=== PATIENT | female | born 1970 | race Caucasian/White ===

== ENCOUNTER 2020-08-29 10:04 | Emergency (ER) | payer OTHER ==
[~2020-08-29 10:04] MED LIST: ASPIRIN EC81 MG PO; GLUCOTROL 10 MG10 MG PO; METFORMIN HCL1000 M1 PO; ZESTRIL20 MG PO
[2020-08-29 10:57] LABS: HEMOGLOBIN 9.2 gm/dl (12.3-15.3); RED BLOOD COUNT 2.91 M/UL (4.00-5.10); WHITE BLOOD COUNT 9.6 K/UL (4.5-11.0)
[2020-08-29] MEDS ORDERED: ZOFRAN4 MG PO (14:34)
[2020-08-29] MEDS ORDERED: MECLIZINE HCL25 MG PO (14:34)
[2020-08-30] MEDS ORDERED: CLOPIDOGREL75 MG PO (03:08)
[2020-08-30] MEDS ORDERED: FUROSEMIDE20 MG PO (03:08)
[2020-08-30] MEDS ORDERED: LOPRESSOR 25 MG25 MG PO (03:09)
[2020-08-30] MEDS ORDERED: GABAPENTIN300 MG PO (03:10)
[2020-09-27] MEDS ORDERED: ST. JOSEPH ASPI81 M1 PO (07:44)
[2020-09-27] MEDS ORDERED: IRON CHEWS15 MG PO (07:45)
[2020-09-27] MEDS ORDERED: STOOL SOFTENER100 M1 PO (07:45)
[2020-09-27] MEDS ORDERED: VITAMIN D250 MCG PO (07:45)
[2020-09-27] MEDS ORDERED: PLAVIX75 MG PO (07:46)
[2020-09-27] MEDS ORDERED: ISOSORBIDE MONO30 MG PO (07:47)
[2020-09-27] MEDS ORDERED: PROTONIX 40 MG40 M1 PO (10:02)
== END 2020-08-29 15:11 | disposition home or self-care (01) ==
LOC: ER1 10:04
PROVIDERS: Internal Medicine
DX: R42 Dizziness and giddiness (principal); R11.2 Nausea with vomiting, unspecified; I10 Essential (primary) hypertension; Z90.49 Acquired absence of other specified parts of digestive tract; Z20.822 Contact with and (suspected) exposure to COVID-19
CPT/HCPCS: 0240U; 70450; 71046; 80053; 84484; 85025; 93005

== ENCOUNTER 2020-08-29 23:15 | Inpatient (IN) | payer OTHER ==
[~2020-08-29] VITALS: Ht 165.1 cm; Wt 86.2 kg
[~2020-08-29 23:15] MED LIST changes: +MECLIZINE HCL25 MG PO; +ZOFRAN4 MG PO
[2020-08-30 01:21] LABS: HEMOGLOBIN 8.7 gm/dl (12.3-15.3); RED BLOOD COUNT 2.68 M/UL (4.00-5.10); WHITE BLOOD COUNT 9.4 K/UL (4.5-11.0)
[2020-08-30 01:43] LABS: BUN/CREATININE RATIO 26 (0-10)
[2020-08-30] MEDS ORDERED: CLOPIDOGREL75 MG PO (03:08)
[2020-08-30] MEDS ORDERED: FUROSEMIDE20 MG PO (03:08)
[2020-08-30] MEDS ORDERED: LOPRESSOR 25 MG25 MG PO (03:09)
[2020-08-30] MEDS ORDERED: GABAPENTIN300 MG PO (03:10)
[2020-08-31 06:10] LABS: BUN/CREATININE RATIO 18 (0-10)
[2020-08-31] MEDS ORDERED: NITROGLYCERIN0.4 MG SL (15:31)
[2020-09-27] MEDS ORDERED: ST. JOSEPH ASPI81 M1 PO (07:44)
[2020-09-27] MEDS ORDERED: STOOL SOFTENER100 M1 PO (07:45)
[2020-09-27] MEDS ORDERED: IRON CHEWS15 MG PO (07:45)
[2020-09-27] MEDS ORDERED: VITAMIN D250 MCG PO (07:45)
[2020-09-27] MEDS ORDERED: PLAVIX75 MG PO (07:46)
[2020-09-27] MEDS ORDERED: ISOSORBIDE MONO30 MG PO (07:47)
[2020-09-27] MEDS ORDERED: PROTONIX 40 MG40 M1 PO (10:02)
== END 2020-08-31 17:00 | disposition home or self-care (01) | DRG 282 ==
LOC: ER1 23:15 → MED SURG 4 08-30 02:24 → CDU 08-30 02:24 → MED SURG 4 08-30 07:18
PROVIDERS: Emergency Medicine; Internal Medicine; ADMIT Internal Medicine
DX: I21.4 Non-ST elevation (NSTEMI) myocardial infarction (principal); E11.9 Type 2 diabetes mellitus without complications; E86.0 Dehydration; Z20.822 Contact with and (suspected) exposure to COVID-19; I25.110 Atherosclerotic heart disease of native coronary artery with unstable angina pectoris; I10 Essential (primary) hypertension; H54.8 Legal blindness, as defined in USA; E66.9 Obesity, unspecified; D64.9 Anemia, unspecified; I49.5 Sick sinus syndrome; Z95.5 Presence of coronary angioplasty implant and graft; Z82.49 Family history of ischemic heart disease and other diseases of the circulatory system; Z87.891 Personal history of nicotine dependence; Z90.49 Acquired absence of other specified parts of digestive tract; Z95.0 Presence of cardiac pacemaker; Z68.31 Body mass index [BMI] 31.0-31.9, adult; Z79.84 Long term (current) use of oral hypoglycemic drugs; Z79.02 Long term (current) use of antithrombotics/antiplatelets; Z79.82 Long term (current) use of aspirin; Z79.899 Other long term (current) drug therapy
CPT/HCPCS: 0240U; 36415; 70450; 71045; 71046; 80048; 80053; 80061; 82550; 82553; 82962; 83874; 84484; 85018; 85025; 85730; 93005; 96374; 99284; 99285; C9113; J1644; U0002

== ENCOUNTER → 2020-09-17 | Outpatient (CLI) | payer OTHER ==
[~2020-09-17] MED LIST changes: +CLOPIDOGREL75 MG PO; +FUROSEMIDE20 MG PO; +GABAPENTIN300 MG PO; +IRON CHEWS15 MG PO; +ISOSORBIDE MONO30 MG PO; +LOPRESSOR 25 MG25 MG PO; +NITROGLYCERIN0.4 MG SL; +PLAVIX75 MG PO; +PROTONIX 40 MG40 M1 PO; +ST. JOSEPH ASPI81 M1 PO; +STOOL SOFTENER100 M1 PO; +VITAMIN D250 MCG PO
== END ==
LOC: HEART 5 01-31 08:00
DX: I50.33 Acute on chronic diastolic (congestive) heart failure (principal); I49.5 Sick sinus syndrome; I20.9 Angina pectoris, unspecified; R93.1 Abnormal findings on diagnostic imaging of heart and coronary circulation; I51.7 Cardiomegaly; R94.39 Abnormal result of other cardiovascular function study
CPT/HCPCS: 78452; 93306; A9502; J2785

== ENCOUNTER → 2020-09-27 | Day surgery (SDC) | payer OTHER | END | disposition home or self-care (01) | LOC: OR 06:44 | PROVIDERS: Internal Medicine Gastroenterology | PROC: 0D5L8ZZ Destruction of Transverse Colon, Via Natural or Artificial Opening Endoscopic (ICD-10-PCS; 2020-09-27) | PROC: 0DB68ZX Excision of Stomach, Via Natural or Artificial Opening Endoscopic, Diagnostic (ICD-10-PCS; principal; 2020-09-27 09:15) | PROC: 0DB78ZX Excision of Stomach, Pylorus, Via Natural or Artificial Opening Endoscopic, Diagnostic (ICD-10-PCS; 2020-09-27 09:15) | DX: K29.71 Gastritis, unspecified, with bleeding (principal); D50.0 Iron deficiency anemia secondary to blood loss (chronic); K21.00 Gastro-esophageal reflux disease with esophagitis, without bleeding; K29.80 Duodenitis without bleeding; K26.9 Duodenal ulcer, unspecified as acute or chronic, without hemorrhage or perforation; K31.9 Disease of stomach and duodenum, unspecified; K63.5 Polyp of colon; I10 Essential (primary) hypertension; E11.9 Type 2 diabetes mellitus without complications; H54.8 Legal blindness, as defined in USA; E66.01 Morbid (severe) obesity due to excess calories; Z68.32 Body mass index [BMI] 32.0-32.9, adult; Z95.0 Presence of cardiac pacemaker; Z79.84 Long term (current) use of oral hypoglycemic drugs; Z79.82 Long term (current) use of aspirin; Z79.899 Other long term (current) drug therapy; Z20.822 Contact with and (suspected) exposure to COVID-19; Z87.891 Personal history of nicotine dependence | CPT/HCPCS: 82962; J2250; J2704; J7040 ==

== ENCOUNTER → 2021-02-08 | Outpatient (CLI) | payer OTHER | LOC: KOH-I 11:03 | DX: M54.9 Dorsalgia, unspecified (principal); M51.37 Other intervertebral disc degeneration, lumbosacral region | CPT/HCPCS: 72070; 72110 ==

== ENCOUNTER → 2021-05-22 | Outpatient (CLI) | payer OTHER | LOC: EXRD 08:45 | DX: N28.1 Cyst of kidney, acquired (principal); K76.0 Fatty (change of) liver, not elsewhere classified; Z90.49 Acquired absence of other specified parts of digestive tract | CPT/HCPCS: 76700 ==

== ENCOUNTER 2022-02-13 08:56 | Emergency (ER) | payer OTHER ==
[2022-02-13 10:08] LABS: HEMOGLOBIN 14.5 gm/dl (12.3-15.3); RED BLOOD COUNT 4.7 M/UL (4.00-5.10); WHITE BLOOD COUNT 9.2 K/UL (4.5-11.0)
[2022-02-13] MEDS ORDERED: BENZONATATE100 MG PO (12:51)
== END 2022-02-13 12:46 | disposition home or self-care (01) ==
LOC: ER1 08:56
PROVIDERS: Physician Assistant
DX: J98.11 Atelectasis (principal); E11.9 Type 2 diabetes mellitus without complications; Z90.49 Acquired absence of other specified parts of digestive tract
CPT/HCPCS: 71045; 80053; 82550; 82553; 83880; 84484; 85025; 85379; 93005; 96374; 99285; J1885